=== PATIENT | female | born 1985 | race Caucasian/White ===

== ENCOUNTER 2023-06-06 19:45 | Emergency (ER) | payer OTHER, MEDICAID ==
[2023-06-06] MEDS ORDERED: Cyclobenzaprine 10 MG Tab PO ONE (20:06)
[2023-06-06] MEDS ORDERED: Sodium Chloride 0.9% 1,000 ML IV STA (20:06)
[2023-06-06] MEDS ORDERED: Bacitracin Oint 1 GM U/D Packet TOP ONE (20:10)
[2023-06-06] MEDS ORDERED: Diphtheria,Pertussis(Acell),Tetanus Vaccine 0.5 ML Syringe IM ONE (20:10)
[2023-06-06] MEDS ORDERED: Lidocaine 1% PF 2 ML SDV INJECT ONE (20:17)
[2023-06-06 20:46] LABS: BASOPHILS ABSOLUTE AUTO 0.04 K/uL (0.00-0.20); BASOPHILS PERCENT AUTO 0.3 % (0.0-1.0); EOSINOPHILS ABSOLUTE AUTO 0.04 K/uL (0.00-0.45); EOSINOPHILS PERCENT AUTO 0.3 % (0.0-6.0); HEMATOCRIT 37.1 % (37.0-47.0); IMMATURE GRAN ABSOLUTE AUTO 0.03 K/uL (0.00-0.05); IMMATURE GRAN PERCENT AUTO 0.2 % (0.0-0.4); LYMPHOCYTES ABSOLUTE AUTO 1.32 K/uL (1.00-4.80); LYMPHOCYTES PERCENT AUTO 10.2 % (24.0-44.0); MEAN CORPUSCULAR HEMOGLOBIN 32.9 pg (28.0-32.0); MEAN CORPUSCULAR VOLUME 93.9 fL (83.0-99.0); MEAN PLATELET VOLUME 9.7 fL (9.4-12.3); MONOCYTES ABSOLUTE AUTO 0.63 K/uL (0.00-0.80); MONOCYTES PERCENT AUTO 4.8 % (0.0-8.0); NEUTROPHILS ABSOLUTE AUTO 10.94 K/uL (1.80-7.70); NEUTROPHILS PERCENT AUTO 84.2 % (41.0-71.0); PLATELET COUNT,PLT 314 K/uL (150-400); RED BLOOD CELL COUNT 3.95 M/uL (4.10-5.30)
[2023-06-06] MEDS ORDERED: Amoxicillin/Clavulanate K 875-125 MG Tab PO ONE (21:07)
[2023-06-06 21:12] LABS: A/G RATIO 1.1 (0.9-1.6); ALANINE AMINOTRANSFERASE,ALT 27 IU/L (14-63); ALBUMIN 4.2 g/dL (3.4-5.0); ALKALINE PHOSPHATASE 62 U/L (46-116); ASPARTATE AMNIOTRANSFERASE,AST 20 IU/L (15-37); BILIRUBIN TOTAL 0.3 mg/dL (0.2-1.0); BLOOD UREA NITROGEN,BUN 13 mg/dL (7.0-18.0); CALCIUM 9.4 mg/dL (8.5-10.1); CARBON DIOXIDE,CO2 25.8 mmol/L (21.0-32.0); CHLORIDE,CL 103 mmol/L (98-107); EST CRCL DRUG DOSING (CG) 75.63 mL/min; GLUCOSE RANDOM 82 mg/dL (74-106); PROTEIN TOTAL,TP 8.1 g/dL (6.4-8.2); SODIUM,NA 140 mmol/L (136-145)
[2023-06-06 21:32] LABS: ESTIMATED GFR 75 mL/min (>60)
== END 2023-06-06 21:50 | disposition home or self-care (01) ==
LOC: MW.ED 19:45
DX: S02.2XXA Fracture of nasal bones, initial encounter for closed fracture (principal); S09.90XA Unspecified injury of head, initial encounter; R55 Syncope and collapse; W19.XXXA Unspecified fall, initial encounter
CPT/HCPCS: 12011; 36415; 70450; 70486; 72125; 80053; 84484; 85025; 90471; 90715; 93005; 96360; 99284; A9270; J7030; 93010; 99283; J3490